=== PATIENT | female | born 1955 | race Caucasian/White ===

== ENCOUNTER 2016-06-26 06:02 | Day surgery (SDC) | payer OTHER ==
[~2016-06-26] VITALS: Ht 157.5 cm; Wt 109.8 kg
[2016-06-26 07:19] VITALS: Ht 157.5 cm; Wt 109.8 kg
[2016-06-26] MEDS ORDERED: [UNRECOGNIZED DRUG - OTHER] (07:29)
[2016-06-26] MEDS ORDERED: methocarbamol (07:29)
[2016-06-26] MEDS ORDERED: ibuprofen (07:29)
[2016-06-26] MEDS ORDERED: simvastatin (07:29)
[2016-06-26] MEDS ORDERED: oxybutynin (07:29)
[2016-06-26] MEDS ORDERED: gabapentin (07:29)
[2016-06-26] MEDS ORDERED: loratidine (07:29)
[2016-06-26] MEDS ORDERED: sertraline (07:29)
[2016-06-26] MEDS ORDERED: metformin (07:29)
[2016-06-26] MEDS ORDERED: LIDOCAINE 2% (SDV) 5 ML INJ ONE (08:02)
[2016-06-26] MEDS ORDERED: PROPOFOL 40 ML ONE (08:02)
[2016-06-26 08:07] VITALS: BP 115/62; PULSE 69; RESP 24
[2016-06-26 09:03] VITALS: BP 101/51; RESP 20
--- NOTE | 2016-06-26 12:22 | GILP ---
DATE OF PROCEDURE: 06/26/2016 NAME OF PROCEDURES: 1. Esophagogastroduodenoscopy and biopsy. 2. Colonoscopy. SURGEON: Tori Mendieta MD PREOPERATIVE DIAGNOSES: 1. Abdominal pain. 2. Chronic heartburn. 3. Screening colonoscopy. POSTOPERATIVE DIAGNOSES: 1. Hiatal hernia. 2. Reflux esophagitis. 3. Gastritis with erosions. 4. Gastric mucosal biopsies were taken for Helicobacter pylori test. 5. Colonoscopy all the way to the cecum. 6. Diverticulosis of the colon. 7. Internal hemorrhoids. 8. No colon neoplasm was identified. INDICATION FOR THE PROCEDURE: Ms. Sri Townsend is a 60-year-old female patient who had upper abd ominal pain and chronic heartburn, not responding to therapy. The patient also needed screening col onoscopy. The procedures and possible complications are well explained to the patient. The patient understood and consented to the procedure. DESCRIPTION OF PROCEDURE: Under the influence of anesthesia, the gastroscope was carefully introduc ed into the esophagus and under direct vision, it was advanced to the stomach and through the pyloru s into the duodenal bulb and descending duodenum. FINDINGS: ESOPHAGUS: The patient had hiatal hernia with reflux esophagitis. STOMACH: She had gastritis with erosions. Gastric mucosal biopsies were taken for H. pylori test. DUODENUM: Normal. The colonoscope was carefully introduced in the rectum and under direct vision, it was advanced all the way to the cecum. FINDINGS: The patient had diverticulosis of the colon. She also had internal hemorrhoids. No colo n neoplasm was identified. She tolerated the procedures very well and there was no complication from the procedures. At the en d of the procedures, she was awake with stable vital signs and she was discharged home to the care o f her family. IMPRESSION: Please see postoperative diagnoses. PLAN: 1. Omeprazole 40 mg p.o. q.a.m. 2. Await H. pylori test report. 3. Next screening colonoscopy in 10 years. Dictated By: TORI CARRIZALES/SEAN Conf#: [id number] DID#: [id number] CC: TORI MENDIETA MD;*EndCC*
== END 2016-06-26 09:23 | disposition home or self-care (01) ==
LOC: GIL 06:02
PROVIDERS: ATTEND Internal Medicine Gastroenterology
DX: Z12.11 Encounter for screening for malignant neoplasm of colon (principal); K29.60 Other gastritis without bleeding; K57.90 Diverticulosis of intestine, part unspecified, without perforation or abscess without bleeding; B96.81 Helicobacter pylori [H. pylori] as the cause of diseases classified elsewhere; K64.8 Other hemorrhoids; I10 Essential (primary) hypertension; E66.01 Morbid (severe) obesity due to excess calories; Z68.41 Body mass index [BMI] 40.0-44.9, adult; E11.9 Type 2 diabetes mellitus without complications
CPT/HCPCS: 43239; 45378; 82962; 87081; Z7610